=== PATIENT | female | born 2000 | race Caucasian/White ===

== ENCOUNTER 2024-09-22 21:24 | Emergency (ER) | payer SELFPAY ==
[~2024-09-22] VITALS: Ht 165.1 cm; Wt 78.0 kg
[2024-09-22 21:29] VITALS: O2SAT 100
[2024-09-22] MEDS: SODIUM CHLORIDE 0.9% 1,000 ML IV ONE (22:20)
[2024-09-22] MEDS: ONDANSETRON HCL 4MG/2ML INJ IV ONE (22:20)
[2024-09-22] MEDS: FAMOTIDINE 20MG/2ML VIAL IV ONE (22:20)
[2024-09-22 22:55] LABS: BASOPHILS % 0.5 % (0.0-2.0); HEMATOCRIT. 39.6 % (36.0-48.0); HEMOGLOBIN. 13.4 g/dL (12.0-16.0); LYMPHOCYTES % 8.5 % (20.0-50.0); MEAN CORPUSCULAR HEMOGLOBIN 29.4 pg (28.0-32.0); MEAN CORPUSCULAR HGB CONC 33.9 g/dL (31.0-37.0); MEAN CORPUSCULAR VOLUME 86.7 fL (81.0-99.0); MEAN PLATELET VOLUME 9.9 fl (7.4-10.4); MONOCYTES % 3.6 % (2.0-8.0); NEUTROPHILS % 87.4 % (40.0-76.0); PLATELET 226 x1000/uL (130-400); RED BLOOD CELL COUNT 4.56 mill/uL (4.2-5.4); RED CELL DISTRIBUTION WIDTH 13.8 % (11.6-14.6)
[2024-09-22 23:02] LABS: CARBON DIOXIDE 24 mEq/L (21-32); CHLORIDE 106 mEq/L (98-107); POTASSIUM 3.6 mEq/L (3.5-5.1); SODIUM 140 mEq/L (136-145)
[2024-09-22 23:03] LABS: CALCIUM 9.9 mg/dL (8.7-10.4)
[2024-09-22 23:07] LABS: CREATININE 0.7 mg/dL (0.6-1.0)
[2024-09-22 23:08] LABS: GLUCOSE 149 mg/dL (70-105); UREA NITROGEN BLOOD 12 mg/dL (9-23)
[2024-09-22 23:09] LABS: ALANINE AMINOTRANSFERASE 12 IU/L (10-49); ALBUMIN 4.6 g/dL (3.2-4.8); ASPARTATE AMINOTRANSFERASE 18 IU/L (<34)
[2024-09-22 23:10] LABS: BILIRUBIN DIRECT 0.3 mg/dL (<=3.0); BILIRUBIN TOTAL 0.9 mg/dL (0.1-1.0); PROTEIN TOTAL 8.1 g/dL (6.0-8.3)
[2024-09-22 23:17] LABS: HCG SCREEN NEGATIVE
[2024-09-22 23:47] LABS: ETHANOL BLOOD < 10 mg/dL (<10)
[2024-09-22] MEDS: ACETAMINOPHEN 1000MG/100ML 100 ML IV ONE (23:56)
[2024-09-23] MEDS ORDERED: IMOD MT (00:27)
[2024-09-23] MEDS ORDERED: ONDA4TAB50 MT (00:27)
[2024-09-23 00:30] VITALS: BP 141/85; PULSE 79; RESP 16; TEMP 36.7; O2SAT 98
[2024-09-23] MEDS: ONDANSETRON HCL 4MG/2ML INJ IV NR (00:34)
== END 2024-09-23 01:00 | disposition home or self-care (01) ==
LOC: ER 21:24
DX: F11.10 Opioid abuse, uncomplicated (principal); Z79.899 Other long term (current) drug therapy
CPT/HCPCS: 80076; 80048; 80320; 84703; 83690; 85025; 36415; 70450; 96361; 96365; 96375; 99285; 96376; J3490; J2405 ×2; J7030; Z7610 ×4; G0480; J0131